=== PATIENT | male | born 1940 | race Caucasian/White ===

== ENCOUNTER → 2017-05-03 | Outpatient (CLI) | payer OTHER ==
[~2017-05-03] MED LIST: ASPI-496 PO; ASPI325T17 PO; BETA1TAB10 PO; LISI-167 PO; METF500T4 PO; MULT-257 PO; NAPR220T77 PO; OMEP-110 PO; OXYC10TA6 PO; SIMV40TA3 PO
== END | disposition home or self-care (01) ==
LOC: CFH 08:30
PROVIDERS: ATTEND Internal Medicine Cardiovascular Disease
DX: Z01.810 Encounter for preprocedural cardiovascular examination (principal); I10 Essential (primary) hypertension
CPT/HCPCS: 78452; 93017; A9502